=== PATIENT | male | born 1970 | race Caucasian/White ===

== ENCOUNTER 2018-07-25 13:00 | Emergency (ER) | payer MEDICAID, OTHER ==
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
[2018-07-25 14:34] VITALS: BP 135/70
== END 2018-07-25 14:33 | disposition home or self-care (01) ==
DX: R07.81 Pleurodynia (principal); S20.211A Contusion of right front wall of thorax, initial encounter; Y04.0XXA Assault by unarmed brawl or fight, initial encounter; Z87.891 Personal history of nicotine dependence; Y92.9 Unspecified place or not applicable; Z59.0 Homelessness